=== PATIENT | female | born 1975 | race Two or more races ===

== ENCOUNTER 2020-05-19 10:06 | Emergency (ER) | payer MEDICAID, OTHER ==
[~2020-05-19] VITALS: Ht 165.1 cm; Wt 63.2 kg
--- NOTE | 2020-05-19 10:45 | NUR ---
PT PRESENTS TO ED WITH INCREASED LETHARGY. DEVELOPED LT SIDED CHEST PRESSURE, LT SIDED NECK STIFFNESS. AMBULATES WELL. DENIES DIZZINESS. DENIES CP AT THIS TIME.
[2020-05-19 11:17] LABS: ALANINE AMINOTRANSFERASE 20 U/L (12-78); ALBUMIN 4.1 g/dL (3.4-5.0); ANION GAP 6 mmol/L (5-15); CALCIUM 9.5 mg/dL (8.5-10.1); CHLORIDE 111 mmol/L (98-107); CREATININE 0.63 mg/dL (0.55-1.02)
[2020-05-19 11:22] LABS: ALKALINE PHOSPHATASE 63 U/L (45-117); BILIRUBIN,TOTAL 0.7 mg/dL (0.2-1.0); TOTAL PROTEIN 7.8 g/dL (6.4-8.2); TROPONIN I < 0.015 ng/mL (0.000-0.045)
--- NOTE | 2020-05-19 11:57 | NUR ---
PT SITTING UP IN BED, TALKING ON CELL PHONE. AT BEDSIDE. NAD NOTED AT THIS TIME. RESPIRATIONS EVEN AND UNLABORED ON RA. AWAITING LAB RESULTS.
[2020-05-19 12:09] LABS: BASOPHILS % (AUTO) 0 % (0-1); EOSINOPHILS % (AUTO) 0 % (1-7); LYMPHOCYTES % (AUTO) 17 % (22-44); MD NO; MEAN CORPUSCULAR HEMOGLOBIN 29.1 pg (27.0-34.8); MEAN CORPUSCULAR HGB CONC 33.2 g/dL (32.4-35.8); MEAN PLATELET VOLUME 6.8 fL (7.4-10.4); MONOCYTES % (AUTO) 5 % (2-9); NEUTROPHILS % (AUTO) 77 % (42-75); PLATELET COUNT 402 x10^3/uL (130-400); RED BLOOD COUNT 4.62 x10^6/uL (3.82-5.3); RED CELL DISTRIBUTION WIDTH 13.7 % (9.6-15.2)
[2020-05-19 12:37] VITALS: BP 115/71
== END 2020-05-19 12:53 | disposition home or self-care (01) ==
LOC: ED 12:46
DX: R00.2 Palpitations (principal); R06.00 Dyspnea, unspecified; R07.9 Chest pain, unspecified; R42 Dizziness and giddiness
CPT/HCPCS: 36415; 71045; 80053; 84443; 84484; 84703; 85025; 85379; 93005; 99285